=== PATIENT | female | born 1940 | race Caucasian/White ===

== ENCOUNTER 2016-08-10 17:23 | Emergency (ER) | payer MEDICARE ==
[~2016-08-10] VITALS: Ht 162.6 cm; Wt 91.8 kg
[~2016-08-10 17:23] MED LIST: DICL-86 PO; ENAB15TA PO; LISI-360 PO; LOVA20TA OR; METO50TA PO; SERT-132 OR
[2016-08-10 17:42] VITALS: BP 134/73; PULSE 96; RESP 18; TEMP 99.4; O2SAT 94
[2016-08-10] MEDS ORDERED: ENAB15TA PO (20:27)
[2016-08-10] MEDS ORDERED: LISI40TA PO (20:27)
[2016-08-10] MEDS ORDERED: SERT-129 PO (20:27)
[2016-08-10] MEDS ORDERED: METF500T PO (20:27)
[2016-08-10] MEDS ORDERED: METO50TA PO (20:27)
[2016-08-10] MEDS ORDERED: LOVA40TA PO (20:27)
--- NOTE | 2016-08-10 20:36 | PD ---
HPI Chief Complaint: Cold / Flu Symptoms Time Seen by Provider: 20:32 Travel History International Travel<30 days: No Contact w/Intl Traveler<30days: No Traveled to known affect area: No History of Present Illness HPI 76-year-old diabetic female presents to the ED for evaluation of 2 day history of eye pressure and pain, sore throat, nonproductive cough and malaise. Also endorses pleuritic chest pain with cough and mild increased urinary urgency. She denies fever, ear pain, rhinorrhea, shortness of breath, abdominal pain, nausea, vomiting, back pain. She states her was just diagnosed with influenza. She endorses receiving the issues flu immunization. She's been treating at home with [id number] day/night medication with only mild improvement of symptoms. PFSH Past Medical History Arthritis: Yes Blood Disorders: No Depression: Yes Cancer: Yes (SKIN CANCER RIGHT EAR) Cardiovascular Problems: Yes (HTN) High Cholesterol: Yes Diabetes: No Endocrine: No Glaucoma: No Genitourinary: No Hepatitis: No Hiatal Hernia: No Hypertension: Yes Immune Disorder: No Inguinal Hernia: Yes (SURGERY) Musculoskeletal: Yes (BILATERAL PARTIAL KNEE REPLACEMENT; LEFT ROT CUFF REPAIR ) Neurologic: No Psychiatric: Yes (DEPRESSION ) Reproductive: No Respiratory: No Thyroid Disease: No Tetanus Vaccination: Unknown Influenza Vaccination: Yes PNEUMOCCOCAL Vaccine (Year): 2 Menopausal: Yes Past Surgical History Abdominal Surgery: Yes (UMBILICAL HERNIA REPAIR ) Body Medical Devices: BILATERAL BREAST IMPLANTS Cardiac Surgery: No Ear Surgery: Yes (BILAT CAT. SX) Gynecologic Surgery: Yes (TUBAL LIGATION) Joint Replacement: Yes (BILATERAL PARTIAL KNEE REPLACEMENT) Oral Surgery: Yes (GUM SX) Pacemaker: No Thoracic Surgery: Yes (BREAST AUGMENTATION) Other Surgery: Yes Social History Alcohol Use: No Tobacco Use: No Substance Use: No Allergies-Medications (Allergen,Severity, Reaction): Coded Allergies: Sulfa (Verified Allergy, Unknown, Itching, 08/10/16) Reported Meds & Prescriptions Reported Meds & Active Scripts Active Macrobid (Nitrofurantoin Monoh/Nitrofur Macro) 100 Mg Cap 100 Mg PO BID 5 Days Reported Lovastatin 40 Mg Tab 40 Mg PO DAILY Metoprolol Tartrate 50 Mg Tab 50 Mg PO BID Metformin (Metformin HCl) 500 Mg Tab 250 Mg PO BIDPC With meals Lisinopril 40 Mg Tab 40 Mg PO DAILY Sertraline (Sertraline HCl) 100 Mg Tab 100 Mg PO DAILY Enablex 24 HR (Darifenacin ER 24 HR) 15 Mg Tab 15 Mg PO DAILY Review of Systems Except as stated in HPI: all other systems reviewed are Neg Physical Exam Narrative GENERAL: Well-nourished, well-developed elderly white female in no acute distress. SKIN: Warm and dry. HEAD: Normocephalic. EYES: No scleral icterus. No injection or drainage. NECK: Supple, trachea midline. No JVD or lymphadenopathy. ENT: Pearly feliciano tympanic membranes bilaterally. Oropharynx with mild posterior erythema. Uvula midline. Airway patent. CARDIOVASCULAR: Regular rate and rhythm without murmurs, gallops, or rubs. RESPIRATORY: Breath sounds clear and equal bilaterally. No accessory muscle use. GASTROINTESTINAL: Abdomen soft, non-tender, nondistended. Active bowel sounds. MUSCULOSKELETAL: No cyanosis, or edema. Patient is noted to walk with a normal gait. BACK: Nontender without obvious deformity. No CVA tenderness. Data Data Last Documented VS Vital Signs Date Time Temp Pulse Resp B/P Pulse Ox O2 Delivery O2 Flow Rate FiO2 08/10/16 17:42 99.4 96 18 134/73 94 Room Air Orders Influenzae A/B Antigen (08/10/16 20:32) Group A Rapid Strep Screen (08/10/16 20:32) Urinalysis - C+S If Indicated (08/10/16 20:32) Urine Culture (08/10/16 20:50) Strep Culture (Group A) (08/10/16 20:55) Nitrofurantoin Monohyd Macrocr (Macrobid (08/10/16 21:30) Labs Laboratory Tests Test 08/10/16 20:50 Urine Color YELLOW Urine Turbidity CLOUDY Urine pH 6.0 Urine Specific [place] 1.021 Urine Protein NEG mg/dL Urine Glucose (UA) NEG mg/dL Urine Ketones NEG mg/dL Urine Occult Blood TRACE Urine Nitrite POS Urine Bilirubin NEG Urine Leukocyte Esterase MOD Urine RBC 0-3 /hpf Urine WBC 15-19 /hpf Urine Squamous Epithelial 0-5 /hpf Cells Urine Bacteria MANY /hpf Urine Mucus FEW /lpf Microscopic Urinalysis Comment CULTURE INDICATED MDM Medical Decision Making Medical Screen Exam Complete: Yes Emergency Medical Condition: Yes Differential Diagnosis Viral syndrome versus influenza versus pharyngitis versus strep pharyngitis versus UTI versus other Narrative Course 76-year-old diabetic female presents to the ED for evaluation of 2 day history of eye pressure and pain, sore throat, nonproductive cough and malaise. Also endorses pleuritic chest pain with cough and mild increased urinary urgency. She denies fever, ear pain, rhinorrhea, shortness of breath, abdominal pain, nausea, vomiting, back pain. She states her was just diagnosed with influenza. She endorses receiving the issues flu immunization. She's been treating at home with [id number] day/night medication with only mild improvement of symptoms. Vitals reviewed. Physical exam reveals mild posterior oropharyngeal erythema but is otherwise unremarkable. Influenza swab , rapid strep swab negative. UA cloudy with trace occult blood, nitrate positive, moderate leukocyte esterase, 15-19 wbc's, many bacteria. Culture pending. Patient was prescribed Macrobid 100 mg twice a day 5 days. First dose was administered in the ED. She is instructed to continue with symptomatic treatment of her cold symptoms, utilize OTC medications containing guaifenesin, take all medications as prescribed, follow up with the primary care. She indicated understanding of the instructions and was amenable to plan of care. The patient is stable and discharged home. Diagnosis Primary Impression: Urinary tract infection Qualified Code: N39.0 - Urinary tract infection with hematuria, site unspecified Additional Impression: Viral syndrome Referrals: Primary Care Physician Patient Instructions: General Instructions, Urinary Tract Infection in Women ( ED), Viral Syndrome (ED) Additional Instructions: Rest, hydrate. Push fluids such as sports drinks, Pedialyte, popsicles, clear broth. Take antibiotics every 12 hours as prescribed, even if symptoms resolve. Alternating Motrin and Tylenol every 4-6 hours as needed for continued fever. Treat cough with [id number] medications containing guaifenesin. Increase handwashing frequently to avoid the spread of the virus to other family members and the community. Disinfect commonly touched surfaces such as light switches, microwaves, remote controls. Replace toothbrush at the end of this illness. Follow-up with the primary care provider this week. Return to the ED for any urgent or emergent medical condition. Med/Other Pt SpecificInfo: Prescription(s) given Scripts Nitrofurantoin Monohydrate Macrocrystals (Macrobid)100 Mg [id number] Mg PO BID 5 Days Ref 0 Prov:Jonnie Comer MD 08/10/16 Disposition: 01 DISCHARGE HOME Condition: Stable Emily Olguin Aug 10, 2016 20:36
[2016-08-10 21:17] LABS: BLOOD, URINE TRACE (NEG); GLUCOSE,URINE NEG (NEG); KETONE, URINE NEG (NEG)
[2016-08-10 21:21] LABS: NITRITE,URINE POS (NEG); URINE COLOR YELLOW (YELLW/STRAW)
[2016-08-10 21:23] LABS: BACTERIA, URINE MANY /hpf; COMMENT (UR) CULTURE INDICATED; CULTURE IF INDICATED CULTURE INDICATED; MUCUS URINE FEW /lpf (OCC); RBC, URINE 0-3 /hpf (0-3); SQUAMOUS EPITHELIAL CELL URINE 0-5 /hpf (0-5); WBC, URINE 15-19 /hpf (0-5)
[2016-08-10] MEDS ORDERED: NITROFURANTOIN MONOHYD MACROCR 100 MG CAP PO ONE (21:30)
[2016-08-10] MEDS ORDERED: MACR100C2 PO (21:49)
== END 2016-08-10 22:01 | disposition home or self-care (01) ==
LOC: PHED 17:23 → PHEFT 22:01
DX: N39.0 Urinary tract infection, site not specified (principal); B34.9 Viral infection, unspecified; I10 Essential (primary) hypertension; E78.00 Pure hypercholesterolemia, unspecified; Z96.653 Presence of artificial knee joint, bilateral
CPT/HCPCS: 81001; 87077; 87081; 87086; 87186; 87804; 87880; 99283